=== PATIENT | male | born 1955 | race Caucasian/White ===

== ENCOUNTER 2024-06-28 09:42 | Outpatient (CLI) | payer MEDICARE, OTHER | END 2024-06-28 09:43 | disposition home or self-care (01) | LOC: CSHCT 09:42 | PROVIDERS: ATTEND Internal Medicine Cardiovascular Disease | DX: Z13.6 Encounter for screening for cardiovascular disorders (principal); E78.2 Mixed hyperlipidemia | CPT/HCPCS: 75571 ==

== ENCOUNTER 2025-07-14 09:04 | Outpatient (CLI) | payer MEDICARE ==
[2025-07-14 10:14] LABS: Estimated GFR - POC 59.0
[2025-07-14] MEDS ORDERED: Iopamidol 370 76% 100 ML VIAL ONE (11:34)
== END 2025-07-14 09:05 | disposition home or self-care (01) ==
LOC: CSHCT 09:04
PROVIDERS: ATTEND Internal Medicine Gastroenterology
DX: D17.5 Benign lipomatous neoplasm of intra-abdominal organs (principal); Z86.0100 Personal history of colon polyps, unspecified; K42.9 Umbilical hernia without obstruction or gangrene
CPT/HCPCS: 36415; 74177; 82565; Q9967